=== PATIENT | male | born 1975 | race Caucasian/White ===

== ENCOUNTER 2020-08-19 15:42 | Emergency (ER) | payer BC, SELFPAY ==
[~2020-08-19] VITALS: Ht 175.3 cm; Wt 81.6 kg
[2020-08-19 15:50] VITALS: BP_SYST 145
[2020-08-19 18:48] VITALS: BP_SYST 134
== END 2020-08-19 18:48 | disposition home or self-care (01) ==
LOC: SED 15:42
DX: U07.1 COVID-19 (principal); R06.02 Shortness of breath; I10 Essential (primary) hypertension; K21.9 Gastro-esophageal reflux disease without esophagitis; Z87.891 Personal history of nicotine dependence
CPT/HCPCS: 71045; 99283

== ENCOUNTER 2020-08-24 08:25 | Emergency (ER) | payer BC, SELFPAY ==
[~2020-08-24] VITALS: Ht 175.3 cm; Wt 72.6 kg
[2020-08-24 10:13] VITALS: BP_SYST 118
== END 2020-08-24 10:14 | disposition home or self-care (01) ==
LOC: SED 08:25
DX: U07.1 COVID-19 (principal); I10 Essential (primary) hypertension; K21.9 Gastro-esophageal reflux disease without esophagitis
CPT/HCPCS: 71045; 99283